=== PATIENT | female | born 1960 | race African-American/Black ===

== ENCOUNTER 2016-07-21 16:50 | Emergency (ER) | payer BC, SELFPAY ==
[~2016-07-21 16:50] MED LIST: ADVAIR250 INH; ADVIL PO; ALLERGY REL1 OP; ALLERY; DIOVAN HCT320 MG/25 PO; FISH-EPA1000 MG PO; GLUCPH; INDO50 PO; JANUMET1 TA1 PO; JANUMET1 TAB PO; KLONO2; LEVOTHYROXIN100 MCG PO; LYRICA50 PO; NORCO1 TAB PO; PHENTERMINE37.5 MG OR; PHENTERMINE37.5 MG PO; PROZAC PO; SINGULAIR1 PO; VITAMIN D400 UNI1 PO; VITAMIN E PO; [UNRECOGNIZED DRUG - REMARK] OR
== END 2016-07-21 18:50 | disposition home or self-care (01) ==
LOC: ER 16:50
DX: S39.92XA Unspecified injury of lower back, initial encounter (principal); J45.909 Unspecified asthma, uncomplicated; I10 Essential (primary) hypertension; E11.9 Type 2 diabetes mellitus without complications; Z90.710 Acquired absence of both cervix and uterus; Z88.2 Allergy status to sulfonamides; Z79.84 Long term (current) use of oral hypoglycemic drugs; Z79.899 Other long term (current) drug therapy; W01.0XXA Fall on same level from slipping, tripping and stumbling without subsequent striking against object, initial encounter
CPT/HCPCS: 72100; 73502-RT; 99283